=== PATIENT | male | born 1990 | race Caucasian/White ===

== ENCOUNTER 2018-06-30 12:09 | Day surgery (SDC) | payer OTHER, SELFPAY ==
[2018-06-30 12:22] VITALS: BP 138/91; PULSE 89; RESP 16; TEMP 36.2; O2SAT 97
[2018-06-30] MEDS: Lidocaine 2% Multi-Dose 50 ML VIAL (13:24)
--- NOTE | 2018-06-30 15:33 | AT_ITS ---
DATE OF PROCEDURE: June 30, 2018 PREOPERATIVE DIAGNOSIS: Trigger finger right middle finger. POSTOPERATIVE DIAGNOSIS: Same. PROCEDURE: Release A-1 boby right middle finger. SURGEON: David Keith M.D. CHARGE ACCOUNT CLERK: Nurse. ANESTHETIC: 2% Lidocaine plain. PREP: ChloraPrep. INDICATIONS: This patient has had chronic problems with triggering of his right middle finger for se veral years. It's become more and more disabling and he wanted to have it treated. I saw him in the Day Surgery holding area after previously seeing him as an outpatient in September of 2017. I recomm ended release of the A-1 boby. I discussed the pathophysiology and he wished to proceed. I marked his right middle finger. PROCEDURE: The patient was taking to the operating suite where his right hand was prepped with Chlor aPrep. A time-out was instituted. 2% Lidocaine was then used to create an anesthetic wheal over the MCP joint region of the right middle finger. After ensuring adequate anesthesia, a transverse incis ion was made over the A-1 boby. After incising the skin, blunt dissection was used to expose the f lexor tendon sheath. Under direct visualization the A-1 boby was incised with a #15 scalpel blade and completed with Littler scissors. I then had the patient flex and extend the middle finger and he could do so in an unencumbered fashion. The wound was then irrigated with saline and closed with a single suture of #4-0 Ethilon in a horizontal mattress fashion. The wound was dressed with Xeroform gauze, 4x4's and a 3-inch conforming gauze bandage. The patient was taken to the recovery room in sa tisfactory condition, tolerating the procedure well.
== END 2018-06-30 14:07 | disposition home or self-care (01) ==
PROVIDERS: PCP General Practice; Visit Provider Orthopaedic Surgery
PROC: (CPT 26055; principal; 2018-06-30 13:00)
DX: M65.331 Trigger finger, right middle finger (principal)
CPT/HCPCS: 26055

== ENCOUNTER 2018-09-01 17:19 | Emergency (ER) | payer OTHER, SELFPAY ==
[2018-09-01 17:23] VITALS: BP 171/99; PULSE 110; RESP 18; TEMP 36.6; O2SAT 99
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
== END 2018-09-01 18:20 | disposition home or self-care (01) ==
PROVIDERS: Emergency Provider Student in an Organized Health Care Education/Training Program
DX: S01.01XA Laceration without foreign body of scalp, initial encounter (principal); Y00.XXXA Assault by blunt object, initial encounter
CPT/HCPCS: 12002; 90471

== ENCOUNTER 2018-09-10 13:52 | Emergency (ER) | payer OTHER, SELFPAY ==
[2018-09-10 13:55] VITALS: BP 140/93; PULSE 106; RESP 12; TEMP 36.8; O2SAT 99
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
== END 2018-09-10 14:01 | disposition home or self-care (01) ==
LOC: ER 14:03
PROVIDERS: Emergency Provider Student in an Organized Health Care Education/Training Program; PCP General Practice
DX: S01.01XD Laceration without foreign body of scalp, subsequent encounter (principal); W22.8XXD Striking against or struck by other objects, subsequent encounter; Z48.02 Encounter for removal of sutures